=== PATIENT | female | born 1980 | race Asian ===

== ENCOUNTER 2018-09-16 16:11 | Observation (INO) | payer BC ==
[2018-09-16] VITALS (8 sets, daily range): BP systolic 102–116; BP diastolic 55–70; PULSE 82–96; TEMP 98.5
[~2018-09-16] VITALS: Ht 160 cm; Wt 65.0 kg
--- NOTE | 2018-09-16 15:58 | NUR ---
[id number] 32.5 With known Low lying placenta to unit via EMS after waking from nap 30min ago with bright red vaginal bleeding. EMS reports EBL 100-200ml on floor. Patient reports good movement and denies contractions. IV to left wrist per EMS with NS infusing. Assisted onto bed and placed on EFM. FHR reactive. Perineum cleaned of dried blood, no active bleeding noted. Updated MD, See physician notification. Assessment complete. 1638-betamethasone admisnistered per order, see EMAR. 1640-IV to RH per patient request of site change from EMS previous IV site. 1814-Reported off to [facility] who assumes care at this time. Dr. Veliz on unit to evaluate patient.
[2018-09-16] MEDS ORDERED: PRENATAL (16:48)
--- NOTE | 2018-09-16 18:20 | NUR ---
Dr Veliz on unit, views EFM tracing. In to visit with pt and spouse.
--- NOTE | 2018-09-16 20:25 | NUR ---
[facility] here for transfer, pt assisted onto stretcher. Off unit @2024
== END 2018-09-16 20:25 | disposition short-term general hospital (02) ==
LOC: LDR 16:11 → LDRO 16:11 → LDR 16:12 → LDRO 16:15 → LDR 16:21
PROVIDERS: ADMIT Obstetrics & Gynecology
DX: O44.53 Low lying placenta with hemorrhage, third trimester (principal); O09.523 Supervision of elderly multigravida, third trimester; Z3A.32 32 weeks gestation of pregnancy; D56.9 Thalassemia, unspecified; E28.2 Polycystic ovarian syndrome; Z80.3 Family history of malignant neoplasm of breast; Z91.011 Allergy to milk products
CPT/HCPCS: J0702; J7120

== ENCOUNTER 2018-09-21 03:34 | Inpatient (IN) | payer BC ==
[2018-09-21] VITALS (19 sets, daily range): BP systolic 94–119; BP diastolic 54–77; PULSE 63–98; TEMP 98.3
[~2018-09-21] VITALS: Ht 157.5 cm; Wt 65.5 kg
[~2018-09-21 03:34] MED LIST: PRENATAL
--- NOTE | 2018-09-21 03:40 | NUR ---
0340- PATIENT ARRIVED AT THIS TIME VIA EMS DUE TO HEAVY VAGINAL BLEEDING. 0343- EFM APPLIED AT THIS TIME. HEARTONES AUDIBLE IN THE 130'S. COPIOUS AMOUNT OF BRIGHT RED VAGINAL BLEEDING NOTED AT THIS TIME. 0351- PATIENT STATES URGE TO USE BATHROOM TO VOID AT THIS TIME. 0352- VAGINAL CLOTS FALLING IN TOILET WHILE PATIENT IS VOIDING. 0355- DR. GONZALEZ CALLED AT THIS TIME. ANSWERED. PROVIDER STATES THAT SHE IS EN ROUTE TO HOSPITAL AT THIS TIME.
--- NOTE | 2018-09-21 04:25 | NUR ---
0425- Dr Bean at the bedside. FHR tracing reviewed. Speculum exam done. 0430- Decision for C/S. FLIGHT ENGINEER HELICOPTER, nursery and peds notified of C/S. Plan of care reviewed by Dr. Bean with pt and at the bedside. Both verbalized an understanding, agree with the plan and state no questions or concerns at this time. 0509- Horatio monitor removed for abdominal wipe. 0516- Off EFM to OR via bed. 0518- Pt transferred to OR bed and positioned for spinal. See anesthesia record for details. 0520- EFM tracing while positioned in right lateral. See flow record for details.
[2018-09-21 04:26] LABS: BASO % 0.2 % (0.0-2.0); EOS # 0.1 (0.0-0.7); EOS % 0.8 % (0-4.0); GRAN % 68.6 % (42.2-75.2); HEMOGLOBIN 10.5 g/dl (12.5-16.0); LYMPH # 2.1 (1.2-3.4); LYMPH % 20.6 % (20.0-51.0); MEAN CELL VOLUME 79 fl (80.0-100.0); MEAN CORPUSCULAR HEMOGLOBIN 27 pg (27.0-31.0); MEAN CORPUSCULAR HGB CONC 34 g/dl (33.0-37.0); MEAN PLATELET VOLUME 10.8 fl (7.4-10.4); MONO # 0.9 (0.1-0.6); MONO % 9.1 % (1.7-9.3); PLATELET COUNT 282 K/mm3 (130-400); RED BLOOD COUNT 3.92 M/mm3 (4.10-5.30); REDCELL DISTRIBUTION WIDTH-CV 13.9 % (11.5-14.5)
[2018-09-21 10:24] LABS: HEMATOCRIT 27.1 % (37.0-47.0); HEMOGLOBIN 9.3 g/dl (12.5-16.0)
--- NOTE | 2018-09-21 18:00 | NUR ---
JHA REMOVED, PT TOLERATED WELL. AMBULATED TO BATHROOM X 1 ASSIT, RICHARD CARE PROVIDED, TOLERATED WELL. ASSISTED WITH SETTING UP PUMP. DENIES NEEDS AT THIS TIME.
[2018-09-22 00:15] VITALS: BP 105/66; PULSE 81; TEMP 97.9
[2018-09-22 05:20] VITALS: BP 104/62; PULSE 83; TEMP 98.2
[2018-09-22 07:17] LABS: HEMATOCRIT 23.9 % (37.0-47.0); HEMOGLOBIN 8.1 g/dl (12.5-16.0)
[2018-09-22 07:50] VITALS: BP 109/68; PULSE 89; TEMP 97.4
[2018-09-22] MEDS ORDERED: BREASTPUMP MC (10:39)
[2018-09-22 16:30] VITALS: BP 106/66; PULSE 93; TEMP 98.6
[2018-09-22 21:10] VITALS: BP 109/67; PULSE 90; TEMP 97.9
[2018-09-23 07:02] VITALS: BP 107/68; PULSE 74; TEMP 98
[2018-09-23] MEDS ORDERED: PERCOCET 325 MG1 TA2 PO (09:13)
[2018-09-23] MEDS ORDERED: IBU600 MG PO (09:13)
[2018-09-23] MEDS ORDERED: BREASTPUMP MC (09:14)
--- NOTE | 2018-09-23 10:39 | NUR ---
PATIENT REQUESTING BREAST PUMP PRESCRIPTION NOW. RN GAVE THIS PRESCRIPTION WELL PERCOCET SCRIPT FOR TO TAKE AND FILL.
--- NOTE | 2018-09-23 12:49 | NUR ---
Initial visit; Mother thanked [employer] Support Technician for offering congratulations for the of her baby. [employer] Support Technician thanked Mother for choosing [facility].
[2018-09-23 16:43] VITALS: BP 110/63; PULSE 84; TEMP 98
[2018-09-23 18:35] VITALS: BP 120/75; PULSE 86; TEMP 99.1
[2018-09-24 07:15] VITALS: BP 118/72; PULSE 70; TEMP 97.7
== END 2018-09-24 12:10 | disposition home or self-care (01) | DRG 788 ==
LOC: LDRO 03:34 → LDR 05:00 → OB 08:00
PROVIDERS: Obstetrics & Gynecology; ADMIT Obstetrics & Gynecology
PROC: 10D00Z1 Extraction of Products of Conception, Low, Open Approach (ICD-10-PCS; principal; 2018-09-21)
DX: O45.93 Premature separation of placenta, unspecified, third trimester (principal); E28.2 Polycystic ovarian syndrome; O99.02 Anemia complicating childbirth; D64.9 Anemia, unspecified; Z3A.33 33 weeks gestation of pregnancy; Z37.0 Single live birth; O75.89 Other specified complications of labor and delivery; O69.81X0 Labor and delivery complicated by cord around neck, without compression, not applicable or unspecified; O34.13 Maternal care for benign tumor of corpus uteri, third trimester; O99.62 Diseases of the digestive system complicating childbirth; K21.9 Gastro-esophageal reflux disease without esophagitis; D25.1 Intramural leiomyoma of uterus; N80.1 Endometriosis of ovary; Z14.8 Genetic carrier of other disease; Z23 Encounter for immunization
CPT/HCPCS: J0690; J1885; J2270; J2370; J2405; J2590; J7120

== ENCOUNTER → 2018-11-07 | Outpatient (CLI) | payer BC ==
[~2018-11-07] MED LIST changes: +BREASTPUMP MC; +IBU600 MG PO; +PERCOCET 325 MG1 TA2 PO
--- NOTE | 2018-11-07 15:30 | NUR ---
Pt, Redd Gomez (Fai), presents for outpatient consult with 6 week old baby boy, Toñito Willett, for a evaluation. Her spouse does not stay for this appointment. Toñito was born on [birth year] by c/section at 33 weeks gestation. His weight was 4#12.2oz (2160 gms). His EDC was 11/06/18. Toñito was discharged from [facility] on 11/04/18. Discharge weight is reported by Thang as 3772 gms. Today Toñito weighs 8#8.3oz (3864 gms). Pt reports Toñito breastfeeds 3-4 times daily but she is not confident in his transfer and often supplements EBM by bottle after. His intake by bottle yesterday was 275ml, over 5 feedings. Voids and stools are reported to be QS. She pumps 4-5 times daily, collecting an average of 120ml per pump session. After bilaterally Toñito has a weight gain of 52 gms. He rejects additional offers at the breast. LC suggests alternating feeding between breast and bottle each feeding. Continue to offer 60-70ml at bottle feedings and continue with 2 of them being fortified. Breastfeed at the alternate feeds, with option to supplement after if she feels he is not satisified. Pt describes at some breastfeedings Toñito has rejected the breast, after some discussion it sounds that the breasts were overfull, likely making latch difficult. Suggested pumping a little prior to latching when breast feels over full. Pt expresses concern about being successful with transitioning to more breastfeedings, reviewed milk volume and average bottle intake compared to this , pt reassured, and also assured if she was not ready to transition more in, she can proceed at a slower pace. POC: Attempt more breastfeedings, continue pumping to ensure milk supply. continue at least 8 feedings per day, with 2 being fortified feedings. F/U: One week with this LC. Questions invited and answered.
== END ==
LOC: LDRO 11-06 12:24 → LAC 14:36
DX: Z39.1 Encounter for care and examination of lactating mother (principal); Z71.89 Other specified counseling

== ENCOUNTER → 2018-11-14 | Outpatient (CLI) | payer BC ==
--- NOTE | 2018-11-14 15:42 | NUR ---
Pt, Redd Gomez (Fai) present for outpatient consult with 7 week old baby boy, Toñito Willett, for a follow up evaluation. Her spouse does not stay for the appointment. Toñito was born on [birth year] by c/section at 33 weeks gestation. weight was 4#12.2oz (2160 gms). His EDC was 11/06/18. Discharge weight from [facility] was 3772 gms on 11/04/18. Last week at our consult Toñito weighed 8#8.3oz (3864gms). Today his weight is 9#3.1oz (4170 gms). Thang has reduced the number of bottle feedings while increasing the breastfeedings over the last few days. Yesterday he had 2 bottles of fortified breastmilk and 2 small bottles (20 and 30ml). Toñito ate a couple hours prior to this consult and was spitting some when he arrived. After a little rest he does attach and nurse. Weight gain after nursing the left breast was 1.9oz (56 gms), and the right 0.8oz (22gms), for a total intake of 2.7oz (78 gms). Pt continues to have an abundant supply of milk, dripping freely when she initiates the latch. Discussed manually expressing milk prior to latching to help make latch easier for him. Also discussed gradually reducing pumping to help taper oversupply. POC: continue to eliminate bottle feedings with breastfeedings except for the fortified BID. F/U: None scheduled with LC at this time, with Dr. Matthews on 12/05/18. Questions invited and answered.
== END ==
LOC: LAC 15:02
DX: Z39.1 Encounter for care and examination of lactating mother (principal); Z71.89 Other specified counseling

== ENCOUNTER → 2021-03-01 | Outpatient (CLI) | payer BC | LOC: COL.RAD 02-24 09:00 | DX: R31.29 Other microscopic hematuria (principal) ==

== ENCOUNTER → 2021-06-06 | Outpatient (CLI) | payer BC | LOC: MC.RAD 09:47 | DX: N64.4 Mastodynia (principal) ==

== ENCOUNTER → 2023-03-16 | Outpatient (CLI) | payer BC | LOC: MC.RAD 14:09 | DX: Z12.31 Encounter for screening mammogram for malignant neoplasm of breast (principal) ==